=== PATIENT | female | born 1995 | race Caucasian/White ===

== ENCOUNTER 2017-08-04 01:31 | Emergency (ER) | payer SELFPAY ==
[2017-08-04] MEDS ORDERED: NS 0.9% 1000 ML* 1,000 ML IV ONE (02:08)
[2017-08-04] MEDS ORDERED: Ondansetron INJ* 2 MG/ML VIAL IV ONE (02:09)
[2017-08-04] MEDS ORDERED: Haloperidol INJ IV/IM* 5 MG/ML AMP ONE (03:15)
[2017-08-04] MEDS ORDERED: diPHENhydraMINE IV* 50 MG/ML 1 ml VIAL (BENADRYL) ONE (03:15)
[2017-08-04] MEDS ORDERED: LORazepam INJ* 2 MG/ML 1 ML VIAL ONE (03:15)
[2017-08-04 12:04] VITALS: BP 104/66
--- NOTE | 2017-08-05 00:40 | ED ---
Hang Williamson Angela, scribed for Tamiko Spring MD on 08/04/17 at 0206 . Substance Abuse/Use - HPI Summary HPI Summary: This pt is a 21 y/o female BIBA presenting to [facility] for alcohol intoxication. Per EMS, [place] or [place]. Per EMS, pt was uncooperative and weren't able to get vitals. Pt states she "drank a lot of everything." EMS reports pt was vomiting profusely. Pt denies any PMHx. HPI is limited due to level 5 caveat - alcohol intoxication. - History Of Current Complaint Chief Complaint: EDSubstanceAbuse Stated Complaint: ETOH Hx Obtained From: Patient Hx From Patient Unobtainable Due To: Other - alcohol intoxication Onset/Duration of Drug/ETOH Abuse: Hours Overdose Characteristics: Oral Character: Stuporous Associated Signs And Symptoms: Nausea, Vomiting - Allergies/Home Medications Allergies/Adverse Reactions: Allergies Allergy/AdvReac Type Severity Reaction Status Date / Time No Known Allergies Allergy Verified 08/04/17 02:42 Home Medications: Home Medications NK [No Home Medications Reported] 08/04/17 [History Confirmed 08/04/17] PMH/Surg Hx/FS Hx/Imm Hx Endocrine/Hematology History: Denies: Hx Diabetes Cardiovascular History: Denies: Hx Hypertension Infectious Disease History: No Infectious Disease History: Denies: Traveled Outside the [place] in Last 30 Days - Family History Known Family History: Positive: Unknown - level 5 caveat - alcohol intoxication - Social History Alcohol Use: Weekly Substance Use Type: Reports: None Smoking Status (MU): Never Smoked Tobacco Review of Systems Negative: Fever, Chills Positive: Vomiting, Nausea All Other Systems Reviewed And Are Negative: No - Comments Additional Review of Systems Comments: ROS is limited due to level 5 caveat - alcohol intoxication Physical Exam Triage Information Reviewed: Yes Vital Signs On Initial Exam: Initial Vitals Temp Pulse Resp BP Pulse Ox 98.2 F 120 18 114/65 98 08/04/17 01:32 08/04/17 01:32 08/04/17 01:32 08/04/17 01:32 08/04/17 01:32 Vital Signs Reviewed: Yes Appearance: Positive: Well-Nourished Skin: Positive: Warm, Skin Color Reflects Adequate Perfusion, Dry Head/Face: Positive: Normal Head/Face Inspection Eyes: Positive: Normal ENT: Positive: Normal ENT inspection Neck: Positive: Supple, Nontender Respiratory/Lung Sounds: Positive: Clear to Auscultation, Breath Sounds Present Cardiovascular: Positive: Normal, RRR Abdomen Description: Positive: Nontender, Soft Musculoskeletal: Positive: Normal Neurological: Positive: Normal, Sensory/Motor Intact Psychiatric: Positive: Normal - Blank Coma Scale Coma Scale Total: 15 Diagnostics - Vital Signs Vital Signs Temp Pulse Resp BP Pulse Ox 08/04/17 01:32 98.2 F 120 18 114/65 98 - Laboratory Lab Statement: Any lab studies that have been ordered have been reviewed, and results considered in the medical decision making process. Course/Dx - Course Assessment/Plan: This pt is a 21 y/o female BIBA presenting to [facility] for alcohol intoxication. In the ED coure, pt was given IV fluids and zofran. Serum alcohol is 307. Pt will be signed out to Dr. Arndt at shift change, pending dispostion, awaiting alcohol metabolism. - Diagnoses Provider Diagnoses: Alcohol intoxication Discharge - Discharge Plan Condition: Stable Disposition: OTHER Discharge Disposition Comment: signed out to Dr. Arndt, pending dispo, awaiting alcohol metabolism The documentation as recorded by the Hang noel Angela accurately reflects the service I personally performed and the decisions made by , Tamiko Spring MD.
--- NOTE | 2017-08-05 18:39 | ED ---
Heidi Williamson Thomas, scribed for Angelo Arndt MD on 08/04/17 at 0733 . Progress - Progress Note Progress Note: The patient is a sign out from Dr. Spring at shit change pending ETOH metabolism. At re-evaluation at 07:22, the patient is sleeping comfortably. There is alcohol on her breath. Lungs are clear to auscultation bilaterally and the heart is regular rate and rhythm. ASSESSMENT AND PLAN: The patient is a sign out from Dr. Spring with alcohol intoxication. At time of discharge, the patient Is alert and oriented x3 and has normal cognition. The patient is hemodynamically stable and alert and oriented x3. She will be discharged home. She is stable. Course/Dx - Diagnoses Provider Diagnoses: Alcohol intoxication The documentation as recorded by the Heidi noel Thomas accurately reflects the service I personally performed and the decisions made by Hair werner Walter, MD.
== END 2017-08-04 12:02 ==
LOC: ED 01:31
DX: F10.129 Alcohol abuse with intoxication, unspecified (principal)
CPT/HCPCS: 36415; 80320; 99282; G0480; J1200; J1630; J2060; J2405